=== PATIENT | male | born 1985 | race Caucasian/White ===

== ENCOUNTER 2019-09-11 15:28 | Inpatient (IN) | payer OTHER ==
--- NOTE | 2019-09-11 18:33 | BHS.RME ---
Physical/Psych/Mental Status - Behavior Eye Contact: Normal Other Behaviors: Stereotypes - Cooperativeness Cooperativeness: Reluctant - Thinking Thought Processes: Logical - Physical Health Problems Is patient presently having any pain?: Yes (back " for years ") Does patient presently have any injuries (include location): No Does patient currently have a fever: No COWS - Scale Resting Pulse: 1= ID [id number] Sweatin= Chills/Flushing Restless Observation: 1= Difficult to Sit Still Pupil Size: 0= Normal to Room Light Bone or Joint Aches: 1= Mild Discomfort Runny Nose/ Eye Tearin= Nasal Congestion GI Upset > 30mins: 0= None Tremor Observation: 1= Tremor [place], Not Seen Yawning Observation: 2= >3x During Session Anxiety or Irritability: 1=Feels Anxious/Irritable Goose Flesh Skin: 0=Smooth Skin COWS Score: 9 CIWA Nausea/Vomitin-No Nausea/No Vomiting Muscle Tremors: 1-None Visible, but [place] Anxiety: 2 Agitation: 1-Slight > Activity Paroxysmal Sweats: No Perspiration Orientation: 0-Oriented Tacttile Disturbances: 1-Very Mild Itch/Numbness Auditory Disturbances: 1-Very Mild Visual Disturbances: 2-Mild Sensitivity Headache: 2-Mild CIWA-Ar Total Score: 10
--- NOTE | 2019-09-11 18:39 | HP ---
COWS - Scale Resting Pulse: 1= [place] 81-100 Sweatin= Chills/Flushing Restless Observation: 1= Difficult to Sit Still Pupil Size: 0= Normal to Room Light Bone or Joint Aches: 1= Mild Discomfort Runny Nose/ Eye Tearin= Nasal Congestion GI Upset > 30mins: 0= None Tremor Observation: 1= Tremor [place], Not Seen Yawning Observation: 2= >3x During Session Anxiety or Irritability: 1=Feels Anxious/Irritable Goose Flesh Skin: 0=Smooth Skin COWS Score: 9 CIWA Score Nausea/Vomitin-No Nausea/No Vomiting Muscle Tremors: 1-None Visible, but [place] Anxiety: 2 Agitation: 1-Slight > Activity Paroxysmal Sweats: No Perspiration Orientation: 0-Oriented Tacttile Disturbances: 1-Very Mild Itch/Numbness Auditory Disturbances: 1-Very Mild Visual Disturbances: 2-Mild Sensitivity Headache: 2-Mild CIWA-Ar Total Score: 10 - Admission Criteria OASAS Guidelines: Admission for Medically Managed Detox: Requires at least one of the followin. CIWA greater than 12 2. Seizures within the past 24 hours 3. Delirium tremens within the past 24 hours 4. Hallucinations within the past 24 hours 5. Acute intervention needed for co occurring medical disorder 6. Acute intervention needed for co occurring psychiatric disorder 7. Severe withdrawal that cannot be handled at a lower level of care (continued vomiting, continued diarrhea, abnormal vital signs) requiring intravenous medication and/or fluids 8. Admission ROS [facility] Allergies/Adverse Reactions: Allergies Allergy/AdvReac Type Severity Reaction Status Date / Time fluphenazine [From Prolixin] AdvReac Verified 09/11/19 19:21 haloperidol [From Haldol] AdvReac Verified 09/11/19 19:21 History of Present Illness: Others' Prescriptions Patient Name: Rhett Mcmahon Date: 12/23/1984 Address: [address] [place] [address] Sex: Male Rx Written Rx Dispensed Drug Quantity Days Supply Prescriber Name Payment Method Dispenser dextroamp-amphet er 15 mg cap 30 30 Dominga Hair MD Other [facility] #[id number] Patient Name: Rhett Mcmahon Date: 1985 Address: [address] [address] Sex: Male Rx Written Rx Dispensed Drug Quantity Days Supply Prescriber Name Payment Method Dispenser alprazolam 0.5 mg tablet 60 30 Dominga Hair MD Other [facility] #[id number] pt here requesting detox from heroin and benzo use , reports 4 bags of heroin / day via inhalation , use since 12 years ago , latest use 3-4 days ago , most recent detox " I don't know " pt is poor historian , evasive when questioned , reports he was referred by [facility] . benzo - reports 5 xanax /day x 7 years , latest use today cannabis - daily , latest 2 days ago tobacco: rarely " etoh - " once in a while " PMHX : denies PSHX : denies PSYCH : " I don't know , I just don't feel good " Exam Limitations: Clinical Condition - Review of Systems Constitutional: Loss of Appetite EENT: reports: No Symptoms Reported Respiratory: reports: No Symptoms reported Cardiac: reports: No Symptoms Reported GI: reports: Poor Appetite : reports: No Symptoms Reported Musculoskeletal: reports: Back Pain Integumentary: reports: No Symptoms Reported Neuro: reports: Headache Endocrine: reports: No Symptoms Reported Hematology: reports: No Symptoms Reported Psychiatric: reports: Orientated x3, Agitated, other (pt talking to himself , appears to respond to internal stimuli .) Patient History - Smoking Cessation Smoking history: Smoker current status UNK - Substances abused Alcohol Substance route: Oral Frequency: Daily Amount used: 1 PINT VODKA Age of first use: 25 Date of last use: 09/11/19 Alprazolam (Xanax) Substance route: Oral Frequency: Daily Amount used: 1/1MG Age of first use: 16 Date of last use: 09/11/19 Heroin Other (specify): SNIFF Frequency: Daily Amount used: 4 BAGS Age of first use: 25 Date of last use: 09/11/19 Admission Physical Exam S - Physical General Appearance: Yes: Mild Distress, Moderate Distress, Irritable, Anxious, Other (hostile , evasive) HEENTM: Yes: EOMI, Hearing grossly Normal, Normocephalic, Normal Voice Respiratory: Yes: Chest Non-Tender, Lungs Clear, Normal Breath Sounds, No Respiratory Distress, No Accessory Muscle Use Neck: Yes: No masses,lesions,Nodules, Trachea in good position Cardiology: Yes: Regular Rhythm, Regular Rate, S1, S2 Abdominal: Yes: Non Tender, Soft Back: Yes: Normal Inspection Musculoskeletal: Yes: Gait Steady Extremities: Yes: Normal Range of Motion, Non-Tender Neurological: Yes: Alert, Motor Strength 5/5 Integumentary: Yes: Warm - Diagnostic (1) Opioid use disorder Current Visit: Yes Status: Chronic (2) Sedative dependence with current use Current Visit: Yes Status: Chronic Inpatient Rehab Admission - Rehab Decision to Admit Inpatient rehab admission?: No
[2019-09-11 19:21] VITALS: BMI 31.6
[2019-09-11] MEDS ORDERED: MAG HYDROX/AL HYDROX/SIMETH 30 ML UNIT-DOSE CUP PO PRN (19:23)
[2019-09-11] MEDS ORDERED: METHOCARBAMOL 500 MG TABLET PO PRN (19:23)
[2019-09-11] MEDS ORDERED: MENTHOL/PHENOL 1 EACH UD MM PRN (19:23)
[2019-09-11] MEDS ORDERED: BISMUTH SUBSALICYLATE 524 MG/30 ML UD PO PRN (19:23)
[2019-09-11] MEDS ORDERED: MAGNESIUM CITRATE 300 ML BOTTLE PO PRN (19:23)
[2019-09-11] MEDS ORDERED: hydrOXYzine PAMOATE 25 MG CAPSULE (FP) PO PRN (19:23)
[2019-09-11] MEDS ORDERED: ACETAMINOPHEN 325 MG TABLET (FP) PO PRN ×2 (19:23)
[2019-09-11] MEDS ORDERED: MAGNESIUM HYDROX 2400MG/30ML ORAL SUSPENSION 30 ML CUP PO PRN (19:23)
[2019-09-11] MEDS ORDERED: cloNIDine HCL 0.1 MG TABLET PO PRN (19:25)
[2019-09-11] MEDS ORDERED: diazePAM 5 MG TABLET PO ONE (20:00)
[2019-09-11] MEDS ORDERED: MELATONIN 5 MG TABLETS PO PRN (22:00)
[2019-09-11] MEDS: diazePAM 5 MG TABLET PO SCH (22:34)
[2019-09-11] MEDS: THIAMINE HCL 100 MG TABLET (FP) PO SCH (22:35)
[2019-09-12] MEDS: diazePAM 5 MG TABLET PO SCH ×3 (06:53→23:23)
[2019-09-12 09:42] LABS: MCH 28.7 pg (25.7-33.7); MCHC 33.4 g/dl (32.0-35.9); MEAN CELL VOLUME 85.7 fl (80-96); PLATELET COUNT 188 K/MM3 (134-434); RDW 14.1 % (11.9-15.9); WHITE BLOOD COUNT 7.7 K/mm3 (4.0-10.0)
[2019-09-12 09:53] LABS: ALBUMIN 3.9 g/dl (3.4-5.0); BILIRUBIN,TOTAL 0.8 mg/dL (0.2-1); BLOOD UREA NITROGEN 7.8 mg/dL (7-18); CALCIUM 9.1 mg/dL (8.5-10.1); CREATININE 0.8 mg/dL (0.55-1.3); TOT PROT 6.9 g/dl (6.4-8.2)
[2019-09-12] MEDS: PRENATAL VITAMINS W/ FOLIC ACID TABLET (FP) PO SCH (10:13)
--- NOTE | 2019-09-12 16:39 | PN ---
S CIWA - CIWA Score Nausea/Vomitin-No Nausea/No Vomiting Muscle Tremors: None Anxiety: 4-Mod. Anxious/Guarded Agitation: 3 Paroxysmal Sweats: 1-Minimal Palms Moist Orientation: 0-Oriented Tacttile Disturbances: 2-Mild Itch/Numbness/Burn Auditory Disturbances: 2-Mild Harshness/Frighten Visual Disturbances: 0-None Headache: 0-None Present CIWA-Ar Total Score: 12 BHS COWS - Scale Resting Pulse: 0= [place] 80 or Below Sweatin= Chills/Flushing Restless Observation: 1= Difficult to Sit Still Pupil Size: 0= Normal to Room Light Bone or Joint Aches: 1= Mild Discomfort Runny Nose/ Eye Tearin= None GI Upset > 30mins: 0= None Tremor Observation of Outstretched Hands: 0= None Yawning Observation: 1= 1-2x During Session Anxiety or Irritability: 2=Irritable/Anxious Goose Flesh Skin: 3=Piloerection COWS Score: 9 S Progress Note (SOAP) Subjective: Fatigue, Anxious, Restless, Insomnia. Objective: PATIENT A & O X 3. IN NO ACUTE DISTRESS. 09/12/19 16:37 Vital Signs Temperature 97.6 F 09/12/19 12:55 Pulse Rate 68 09/12/19 12:55 Respiratory Rate 20 09/12/19 12:55 Blood Pressure 146/64 09/12/19 12:55 O2 Sat by Pulse Oximetry (%) 98 09/12/19 12:55 Laboratory Tests 09/12/19 09/12/19 09/12/19 07:15 07:15 07:15 WBC 7.7 RBC 5.60 Hgb 16.0 Hct 48.0 MCV 85.7 MCH 28.7 MCHC 33.4 RDW 14.1 Plt Count 188 MPV 12.0 H Sodium 143 Potassium 4.0 Chloride 108 H Carbon Dioxide 28 Anion Gap 7 L BUN 7.8 Creatinine 0.8 Est GFR (CKD-EPI)AfAm 133.20 Est GFR (CKD-EPI)NonAf 114.93 Random Glucose 100 Calcium 9.1 Total Bilirubin 0.8 AST 12 L ALT 15 Alkaline Phosphatase 52 Total Protein 6.9 Albumin 3.9 RPR Titer Nonreactive LABS NOTED. Assessment: 09/12/19 16:37 WITHDRAWAL SYMPTOMS. Plan: CONTINUE DETOX.
--- NOTE | 2019-09-12 17:24 | CONSULT ---
[facility] Psychiatric Consult - Data Date of interview: 09/12/19 Admission source: [facility] Identifying data: First visit to [facility] and admission to [address] [place] [address] for this 34 y/o male self-referred for detoxification treatment. FARA issues : benzodiazepine (xanax), heroin, cannabis, alcohol (occasional use), amphetamine. Patient is single, no dependents, domiciled, unemployed and supported on SSI benefits. Substance Abuse History: Discussed with the patient. Mr Mcmahon is vague about his addictions. " I use everything that I get my hands on : xanax, adderall, alcohol, marihuana, everything." As per [facility] report : Smoking history: Smoker current status UNK. Substances abused. Alcohol. Substance route: Oral. Frequency: Daily. Amount used: 1 PINT VODKA. Age of first use: 25. Date of last use: 09/11/19. Alprazolam (Xanax). Substance route: Oral. Frequency: Daily. Amount used: 1/1MG. Age of first use: 16. Date of last use: 09/11/19. Heroin. Other (specify): SNIFF. Frequency: Daily. Amount used: 4 BAGS. Age of first use: 25. Date of last use: 09/11/19 Medical History: Patient endorses good general health. Noted report of allergy to haloperidol + prolixin (fluphenazine). Psychiatric History: Patient is a guarded and evasive historian. Mr Mcmahon did, however, admits to a personal history of multiple psychiatric hospitalizations. " I have been in hospitals all over the city." Patient mentions Critical [facility] hospital and [facility]. " I cannot remember the names of the others." He endorses MDD, Anxiety Disorder and ADHD. Declines to provide information about how he has come to the discovery of his allergy to neuroleptics (prolixin + haldol). Mr Mcmahon reports psychiatric follow-up at " a clinic in the [place]." Patient denies history of suicide attempts. Physical/Sexual Abuse/Trauma History: No information. Patient declines discussion. Additional Comment: Toxicology not available for review. Mental Status Exam - Mental Status Exam Alert and Oriented to: Time, Place, Person Cognitive Function: Good Patient Appearance: Well Groomed Mood: Nervous, Withdrawn Affect: Inappropriate Patient Behavior: Guarded, Suspicious, Distractible, Cooperative (superficially cooperative) Speech Pattern: Clear (non-spontaneous) Voice Loudness: Normal Thought Process: Goal Oriented Thought Disorder: Bizarre Hallucinations: Denies Suicidal Ideation: Denies Homicidal Ideation: Denies Insight/Judgement: Poor Sleep: Well Appetite: Good Gait/Station: Normal Psychiatric Findings - Problem List ([place] 1, 2,3) (1) Opioid use disorder Current Visit: Yes Status: Chronic (2) Benzodiazepine dependence Current Visit: Yes Status: Chronic (3) Cannabis abuse Current Visit: Yes Status: Suspected Comment: Suggested by patient. (4) Amphetamine abuse Current Visit: Yes Status: Chronic (5) Substance induced mood disorder Current Visit: Yes Status: Chronic - Initial Treatment Plan Initial Treatment Plan: Schizophrenia is strongly suspected. Collateral information needed for clarification. Enlist social work team in the investigative process. Detoxification. AA/NA meetings. Observation.
[2019-09-12] MEDS: THIAMINE HCL 100 MG TABLET (FP) PO SCH (23:23)
[2019-09-13] MEDS: diazePAM 5 MG TABLET PO SCH ×2 (06:28→17:38)
[2019-09-13] MEDS: PRENATAL VITAMINS W/ FOLIC ACID TABLET (FP) PO SCH (10:44)
[2019-09-13] MEDS: IBUPROFEN 400 MG TABLET (FP) PO PRN (10:47)
[2019-09-13] MEDS: diazePAM 5 MG TABLET PO PRN ×2 (10:49→20:15)
--- NOTE | 2019-09-13 11:31 | PN ---
[facility] CIWA - CIWA Score Nausea/Vomitin-No Nausea/No Vomiting Muscle Tremors: None Anxiety: 2 Agitation: 0-Normal Activity Paroxysmal Sweats: 2 Orientation: 0-Oriented Tacttile Disturbances: 0-None Auditory Disturbances: 0-None Visual Disturbances: 0-None Headache: 1-Very Mild CIWA-Ar Total Score: 5 S COWS - Scale Resting Pulse: 0= [place] 80 or Below Sweatin= No chills or Flushing Restless Observation: 1= Difficult to Sit Still Pupil Size: 0= Normal to Room Light Bone or Joint Aches: 2= Severe Diffuse Aches Runny Nose/ Eye Tearin= None GI Upset > 30mins: 0= None Tremor Observation of Outstretched Hands: 0= None Yawning Observation: 0= None Anxiety or Irritability: 2=Irritable/Anxious Goose Flesh Skin: 0=Smooth Skin COWS Score: 5 S Progress Note (SOAP) Subjective: c/o mild withdrawal symptoms. Objective: 09/13/19 11:30 Vital Signs 09/13/19 09/13/19 05:55 09:18 Temperature 97.9 F 96.0 F L Pulse Rate 48 L 63 Respiratory 16 16 Rate Blood Pressure 118/66 128/81 O2 Sat by Pulse 96 Oximetry (%) Laboratory Last Values WBC 7.7 K/mm3 (4.0-10.0) 09/12/19 07:15 RBC 5.60 M/mm3 (4.00-5.60) 09/12/19 07:15 Hgb 16.0 GM/dL (11.7-16.9) 09/12/19 07:15 Hct 48.0 % (35.4-49) 09/12/19 07:15 MCV 85.7 fl (80-96) 09/12/19 07:15 MCH 28.7 pg (25.7-33.7) 09/12/19 07:15 MCHC 33.4 g/dl (32.0-35.9) 09/12/19 07:15 RDW 14.1 % (11.9-15.9) 09/12/19 07:15 Plt Count 188 K/MM3 (134-434) 09/12/19 07:15 MPV 12.0 fl (7.5-11.1) H 09/12/19 07:15 Sodium 143 mmol/L (136-145) 09/12/19 07:15 Potassium 4.0 mmol/L (3.5-5.1) 09/12/19 07:15 Chloride 108 mmol/L (98-107) H 09/12/19 07:15 Carbon Dioxide 28 mmol/L (21-32) 09/12/19 07:15 Anion Gap 7 MMOL/L (8-16) L 09/12/19 07:15 BUN 7.8 mg/dL (7-18) 09/12/19 07:15 Creatinine 0.8 mg/dL (0.55-1.3) 09/12/19 07:15 Est GFR (CKD-EPI)AfAm 133.20 09/12/19 07:15 Est GFR (CKD-EPI)NonAf 114.93 09/12/19 07:15 Random Glucose 100 mg/dL (74-106) 09/12/19 07:15 Calcium 9.1 mg/dL (8.5-10.1) 09/12/19 07:15 Total Bilirubin 0.8 mg/dL (0.2-1) 09/12/19 07:15 AST 12 U/L (15-37) L 09/12/19 07:15 ALT 15 U/L (13-61) 09/12/19 07:15 Alkaline Phosphatase 52 U/L (45-117) 09/12/19 07:15 Total Protein 6.9 g/dl (6.4-8.2) 09/12/19 07:15 Albumin 3.9 g/dl (3.4-5.0) 09/12/19 07:15 RPR Titer Nonreactive (NONREACTIVE) 09/12/19 07:15 Labs noted. Assessment: 09/13/19 11:30 AOX3, in no acute respiratory distress. Full ROM, ambulating in the unit. Mild Withdrawal symptoms. For d/c tomorrow. Plan: continue detox. D/c in AM.
[2019-09-13] MEDS: THIAMINE HCL 100 MG TABLET (FP) PO SCH (22:12)
[2019-09-14] MEDS ORDERED: diazePAM 5 MG TABLET PO ONE (06:00)
--- NOTE | 2019-09-14 08:47 | DS ---
[facility] Detox Discharge Summary Admission Date: 09/11/19 Discharge Date: 09/14/19 - History Present History: Opioid Dependence, Sedative Dependence - Physical Exam Results Vital Signs: Vital Signs Temperature 97.5 F L 09/14/19 06:13 Pulse Rate 61 09/14/19 06:13 Respiratory Rate 18 09/14/19 06:13 Blood Pressure 120/73 09/14/19 06:13 O2 Sat by Pulse Oximetry (%) 99 09/14/19 06:13 Pertinent Admission Physical Exam Findings: Vital Signs Temperature 97.5 F L 09/14/19 06:13 Pulse Rate 61 09/14/19 06:13 Respiratory Rate 18 09/14/19 06:13 Blood Pressure 120/73 09/14/19 06:13 O2 Sat by Pulse Oximetry (%) 99 09/14/19 06:13 Laboratory Tests 09/12/19 09/12/19 09/12/19 07:15 07:15 07:15 WBC 7.7 RBC 5.60 Hgb 16.0 Hct 48.0 MCV 85.7 MCH 28.7 MCHC 33.4 RDW 14.1 Plt Count 188 MPV 12.0 H Sodium 143 Potassium 4.0 Chloride 108 H Carbon Dioxide 28 Anion Gap 7 L BUN 7.8 Creatinine 0.8 Est GFR (CKD-EPI)AfAm 133.20 Est GFR (CKD-EPI)NonAf 114.93 Random Glucose 100 Calcium 9.1 Total Bilirubin 0.8 AST 12 L ALT 15 Alkaline Phosphatase 52 Total Protein 6.9 Albumin 3.9 RPR Titer Nonreactive aaox3 ambulating no acute distress - Treatment Hospital Course: Detox Protocol Followed, Detoxed Safely, Responded well, Discharged Condition Good, Rehab Referral Accepted - Medication Discharge Medications: Ambulatory Orders Dextroamphetamine/Amphetamine [Adderall Xr 15 mg Capsule] 15 mg PO DAILY 09/11/19 - Diagnosis (1) Amphetamine abuse Current Visit: Yes Status: Chronic (2) Benzodiazepine dependence Current Visit: Yes Status: Chronic (3) Opioid use disorder Current Visit: Yes Status: Chronic (4) Sedative dependence with current use Current Visit: Yes Status: Chronic (5) Substance induced mood disorder Current Visit: Yes Status: Chronic (6) Cannabis abuse Current Visit: Yes Status: Suspected - AMA Did Patient Leave Against Medical Advice: No
[2019-09-14] MEDS: PRENATAL VITAMINS W/ FOLIC ACID TABLET (FP) PO SCH (10:55)
[2019-09-14] MEDS: IBUPROFEN 400 MG TABLET (FP) PO PRN (10:58)
--- NOTE | 2019-09-14 12:24 | PN ---
Psychiatric Progress Note Vital Signs: Vital Signs Period Temp Pulse Resp BP Sys/Shirley Pulse Ox Last 24 Hr 97.5 F-98.4 F 59-67 16-18 120-143/68-81 98-100 Date of Session: 09/14/19 Chief Complaint:: " I am trying to better myself ". Observed talking to self. HPI: Day 4 of detoxification treatment. Follow-up visit. Vacuum Forming Machine Operator was called to re-evaluate this patient who, reportedly, was observed talking to self and " acting bizarre ". Mr Mcmahon has not been a management problem since his admission to [address] [place] [address]. Patient is about to complete his detoxification regimen. Doing fine. ROS: Patient is alert, fully oriented, cooperative, friendly on approach and controlled. No somatic complaints offered. Ambulatory. Steady gait. Current Medications: Active Medications Generic Name Dose Route Start Last Admin Trade Name Freq PRN Reason Stop Dose Admin Acetaminophen 650 mg 09/11/19 19:23 Tylenol - PO Q6H PRN PAIN LEVEL 4 - 6 Acetaminophen 650 mg 09/11/19 19:23 Tylenol - PO Q6H PRN FEVER Al Hydroxide/Mg Hydroxide 30 ml 09/11/19 19:23 Mylanta Oral Suspension - PO Q6H PRN DYSPEPSIA Bismuth Subsalicylate 524 mg 09/11/19 19:23 Pepto-Bismol - PO Q1H PRN DIARRHEA Eucalyptus/Menthol/Phenol/Sorbitol 1 each 09/11/19 19:23 Cepastat Lozenge - MM 09/17/19 19:23 Q4H PRN SORE THROAT Hydroxyzine Pamoate 25 mg 09/11/19 19:23 Vistaril - PO 09/17/19 19:24 Q4H PRN ANXIETY Ibuprofen 400 mg 09/11/19 19:23 09/14/19 10:58 Motrin - PO 400 mg Q6H PRN Administration PAIN LEVEL 1 - 3 Magnesium Citrate 300 ml 09/11/19 19:23 Citroma - PO Q48H PRN CONSTIPATION Magnesium Hydroxide 30 ml 09/11/19 19:23 Milk Of Magnesia - PO PRN PRN CONSTIPATION Melatonin 5 mg 09/11/19 22:00 09/13/19 22:12 Melatonin PO 5 mg HS PRN Administration INSOMNIA Methocarbamol 500 mg 03/20/20 19:23 Robaxin - PO 09/17/19 19:23 Q6H PRN MUSCLE SPASMS Multivit/Folic Acid/Iron 1 tab 09/12/19 10:00 09/14/19 10:55 Vitamins (Sjr) - PO 1 tab DAILY ALANNAH Administration Thiamine HCl 100 mg 09/11/19 22:00 09/13/19 22:12 Vitamin B1 - PO 100 mg HS ALANNAH Administration Medication(s) Change(s): Patient is a better historian in this re-interview. Mr Mcmahon reports that, in the past, " they have said that I have schizophrenia but this is not true ". He indicates that he was prescribed medications that " gave me a lot of problems." He remembers only haldol and prolixin. Patient states that he is under the care of a psychiatrist, Dr Hair, at the [facility] ([phone]). Has not seen Dr Hair for past two months (appointments not kept or reporting late to clinic). Prescribed adderall + alprazolam. Gets his refills from [facility] located at [phone] [place] [address] (self- report). Vacuum Forming Machine Operator called [facility] at [phone] : pre-recorded message/no answer. Current Side Effect: No Lab tests ordered: No Lab tests reviewed: Yes Provider note:: Chart reviewed. Case discussed with counselor. Met with patient. Mr Mcmahon is noted as well groomed, calm and cooperative. When approached by this ad writer, the patient was using the telephone, trying to contact his outpatient program [facility] for a follow-up appointment (self-report). In this interview, the patient is conversant, pleasant and informative. He acknowledges being diagnosed with schizophrenia in the past and treated with neuroleptics. He admits to previous hospitalizations at [facility], [facility] and other unnamed institutions. Denies history of suicide attempts. Patient has been approaching staff for resumption of alprazolam and adderall. 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 Patient is clear about his immediate goals. " I want to stay healthy and strong. I am going back to [facility] and keep my appointments with Dr Hair." Mr Mcmahon has consistently denied suicidal or homicidal ideation, intent or plan. He reports that he is currently living with relatives. Denies experiencing hallucinations in all sensory modalities. Some grandiosity elicited (without any dangerous content). Mood is euthymic. Patient is at his baseline. Vacuum Forming Machine Operator called [facility], at [phone], in an attempt to contact Dr Hair : no response (answering device). Case discussed with the Multidisciplinary treatment team. Total face to face time:: 45 Mental Status Exam - Mental Status Exam Alert and Oriented to: Time, Place, Person Cognitive Function: Good Patient Appearance: Well Groomed Mood: Hopeful, Euthymic Affect: Appropriate, Normal Range Patient Behavior: Cooperative Speech Pattern: Clear Voice Loudness: Normal Thought Process: Goal Oriented Thought Disorder: Grandiose, Bizarre (odd at times) Hallucinations: Denies Suicidal Ideation: Denies Homicidal Ideation: Denies Insight/Judgement: Fair Sleep: Well Appetite: Good Gait/Station: Normal Psychiatric Treatment Plan - Problem List (1) Opioid use disorder Comment: . (2) Benzodiazepine dependence Comment: . (3) Amphetamine abuse Comment: . (4) Substance induced mood disorder Comment: . (5) History of schizophrenia Comment: .
[2019-09-14 14:46] VITALS: BP 114/76; PULSE 57; TEMP 98.3
== END 2019-09-14 15:42 | disposition home or self-care (01) | DRG 773 ==
LOC: YASAS 15:28 → Y6N 19:43
PROVIDERS: ADMIT Allergy & Immunology; ATTEND Allergy & Immunology
PROC: HZ2ZZZZ Detoxification Services for Substance Abuse Treatment (ICD-10-PCS; principal; 2019-09-11)
DX: F10.230 Alcohol dependence with withdrawal, uncomplicated (principal); F11.20 Opioid dependence, uncomplicated; F13.20 Sedative, hypnotic or anxiolytic dependence, uncomplicated; F15.10 Other stimulant abuse, uncomplicated; F20.9 Schizophrenia, unspecified; F19.24 Other psychoactive substance dependence with psychoactive substance-induced mood disorder; F90.9 Attention-deficit hyperactivity disorder, unspecified type; F32.9 Major depressive disorder, single episode, unspecified; F41.8 Other specified anxiety disorders; Z88.8 Allergy status to other drugs, medicaments and biological substances
CPT/HCPCS: 36415; 80053; 85027; 86593